=== PATIENT | female | born 1960 | race Caucasian/White ===

== ENCOUNTER → 2016-12-30 | Outpatient (CLI) | payer BC ==
[~2016-12-30] MED LIST: COUMADIN 5MG5 MG/TAB PO; LEVOTHROID0.075 MG PO; PROVIGIL200 MG PO
== END ==
LOC: MC.RAD 08:00
DX: Z12.31 Encounter for screening mammogram for malignant neoplasm of breast (principal)

== ENCOUNTER → 2017-05-23 | Outpatient (CLI) | payer BC | LOC: COL.RAD 07:27 | DX: K80.20 Calculus of gallbladder without cholecystitis without obstruction (principal); K76.89 Other specified diseases of liver ==

== ENCOUNTER → 2017-05-28 | Outpatient (CLI) | payer BC | LOC: COL.RAD 09:25 | DX: R93.2 Abnormal findings on diagnostic imaging of liver and biliary tract (principal) | CPT/HCPCS: A9537 ==

== ENCOUNTER → 2017-11-25 | Outpatient (CLI) | payer BC | LOC: COL.RAD 12:28 | DX: R22.0 Localized swelling, mass and lump, head (principal); J34.89 Other specified disorders of nose and nasal sinuses | CPT/HCPCS: A9585 ==

== ENCOUNTER → 2019-07-29 | Outpatient (CLI) | payer BC | LOC: MC.RAD 08:30 | DX: Z12.31 Encounter for screening mammogram for malignant neoplasm of breast (principal) ==

== ENCOUNTER 2019-12-12 04:46 | Emergency (ER) | payer BC ==
[~2019-12-12] VITALS: Ht 170.2 cm; Wt 70.5 kg
[2019-12-12 04:54] VITALS: TEMP 97.6
[2019-12-12 05:26] LABS: BASO % 0.3 % (0.0-2.0); EOS # 0.1 (0.0-0.7); EOS % 0.8 % (0-4.0); GRAN % 75.2 % (42.2-75.2); HEMATOCRIT 40.2 % (37.0-47.0); HEMOGLOBIN 13.3 g/dl (12.5-16.0); LYMPH # 0.8 (1.2-3.4); LYMPH % 12.7 % (20.0-51.0); MEAN CELL VOLUME 89 fl (80.0-100.0); MEAN CORPUSCULAR HEMOGLOBIN 29 pg (27.0-31.0); MEAN CORPUSCULAR HGB CONC 33 g/dl (33.0-37.0); MEAN PLATELET VOLUME 10.8 fl (7.4-10.4); MONO # 0.7 (0.1-0.6); MONO % 10.7 % (1.7-9.3); PLATELET COUNT 219 K/mm3 (130-400); RED BLOOD COUNT 4.53 M/mm3 (4.10-5.30); REDCELL DISTRIBUTION WIDTH-CV 12.9 % (11.5-14.5)
[2019-12-12 05:36] LABS: ALANINE AMINOTRANSFERASE 9 U/L (4-34); ALBUMIN 4.2 gm/dL (3.5-5.0); ALKALINE PHOSPHATASE 98 U/L (50-136); ANION GAP 6 mmol/L (7-16); AST,SGOT 35 U/L (15-37); BILIRUBIN,TOTAL 0.6 mg/dL (0.0-1.0); BLOOD UREA NITROGEN 17 mg/dL (7-17); CALCIUM 10.4 mg/dL (8.4-10.2); CARBON DIOXIDE 28 mmol/L (22-30); CHLORIDE 100 mmol/L (98-107); CREATININE, serum 0.76 (0.52-1.25); GLUCOSE 110 mg/dL (74-106); PHOSPHOROUS 3.4 mg/dL (2.5-4.5); POTASSIUM 3.8 mmol/L (3.4-5.0); SODIUM 135 mmol/L (137-145); TOTAL PROTEIN 7.7 gm/dL (6.4-8.2)
[2019-12-12 05:57] LABS: INR 13.2 (0.8-3.0); PARTIAL THROMBOPLASTIN TIME 108.7 SECONDS (26.0-37.0); PROTHROMBIN TIME 151.4 SECONDS (9.7-12.8)
[2019-12-12 06:08] LABS: TROPONIN-I < 0.012 ng/mL (0.000-0.035)
[2019-12-12 06:54] VITALS: BP 146/87; PULSE 78
== END 2019-12-12 06:54 | disposition short-term general hospital (02) ==
LOC: COL.ER 04:46
PROVIDERS: Emergency Medicine
DX: I62.9 Nontraumatic intracranial hemorrhage, unspecified (principal); Z79.01 Long term (current) use of anticoagulants; Z79.890 Hormone replacement therapy
CPT/HCPCS: C9132; J1953; J3430; J7050